=== PATIENT | male | born 1985 | race Caucasian/White ===

== ENCOUNTER 2018-12-09 06:47 | Emergency (ER) | payer SELFPAY ==
[2018-12-09 07:09] VITALS: BP 114/91
[2018-12-09 08:12] LABS: Hematocrit 42.4 % (35.5-45.6); Hemoglobin 14.3 gm/dl (11.8-15.2); Mean Corpuscular HGB Conc 34 % (32-34); Mean Corpuscular Volume 83 fl (84-94); Platelet Count 163 K/mm3 (140-440); Red Cell Distribution Width 13.7 % (13.2-15.2)
[2018-12-09] MEDS ORDERED: NACL 0.9% 1000 ML 1,000 ML IV ONE ×2 (08:14→12:09)
--- NOTE | 2018-12-09 08:14 | Emergency Department Report ---
ED Abdominal Pain HPI - General Chief Complaint: Abdominal Pain Stated Complaint: ABDOMINAL PAIN, LOOSE/BLOODY STOOL Time Seen by Provider: 12/09/18 07:38 Source: patient Mode of arrival: Ambulatory Limitations: No Limitations - History of Present Illness Initial Comments: 33 yo AA male here with abd pain and red blood in his stool x 1 week. no fever. no nausea or vomiting. pmh HIV on no meds Complaint: abdominal pain -: days(s) Location: diffuse Severity: moderate Quality: cramping Consistency: intermittent Associated Symptoms: nausea, diarrhea. denies: vomiting, fever, chills, constipation, dysuria, hematemesis, hematochezia, melena, hematuria, anorexia, syncope - Related Data Previous Rx's Medication Instructions Recorded Last Taken Type Ciprofloxacin HCl [Cipro] 500 mg PO BID #20 tablet 12/09/18 Unknown Rx metroNIDAZOLE [Flagyl] 500 mg PO Q12HR #20 tab 12/09/18 Unknown Rx Allergies Allergy/AdvReac Type Severity Reaction Status Date / Time No Known Allergies Allergy Unverified 12/09/18 07:06 ED Review of Systems ROS: Stated complaint: ABDOMINAL PAIN, LOOSE/BLOODY STOOL Other details as noted in HPI Comment: All other systems reviewed and negative Constitutional: denies: chills, fever Eyes: denies: eye pain ENT: denies: throat pain Respiratory: denies: cough Cardiovascular: denies: palpitations Gastrointestinal: as per HPI, abdominal pain, nausea, vomiting, diarrhea. denies: constipation, hematemesis, melena, hematochezia Genitourinary: denies: urgency Musculoskeletal: denies: back pain Skin: denies: lesions Neurological: denies: weakness Psychiatric: denies: depression Hematological/Lymphatic: denies: easy bleeding ED Past Medical Hx - Past Medical History Previous Medical History?: Yes Hx Asthma: Yes Additional medical history: hiv- ON NO MEDS AT THIS TIME - Surgical History Past Surgical History?: No - Family History Family history: no significant - Social History Smoking Status: Current Every Day Smoker Substance Use Type: Marijuana - Medications Home Medications: Home Medications Medication Instructions Recorded Confirmed Last Taken Type Ciprofloxacin HCl [Cipro] 500 mg PO BID #20 tablet 12/09/18 Unknown Rx metroNIDAZOLE [Flagyl] 500 mg PO Q12HR #20 tab 12/09/18 Unknown Rx ED Physical Exam - General Limitations: No Limitations General appearance: alert - Head Head exam: Present: atraumatic - Eye Eye exam: Present: PERRL - ENT ENT exam: Present: mucous membranes moist - Neck Neck exam: Present: normal inspection - Respiratory Respiratory exam: Present: normal lung sounds bilaterally - Cardiovascular Cardiovascular Exam: Present: regular rate - GI/Abdominal GI/Abdominal exam: Present: soft, tenderness - Rectal Rectal exam: Present: deferred - Extremities Exam Extremities exam: Present: normal inspection, full ROM - Back Exam Back exam: Present: normal inspection, full ROM - Neurological Exam Neurological exam: Present: alert, oriented X3, CN II-XII intact - Psychiatric Psychiatric exam: Present: normal affect, normal mood - Skin Skin exam: Present: warm, dry, intact, normal color ED Course Vital Signs 12/09/18 12/09/18 07:06 13:23 Temperature 98.4 F Pulse Rate 73 Respiratory 18 18 Rate Blood Pressure 114/91 O2 Sat by Pulse 100 Oximetry ED Medical Decision Making - Lab Data Result diagrams: 12/09/18 07:59 12/09/18 07:59 - Radiology Data Radiology results: report reviewed, image reviewed COLITIS - Medical Decision Making LABS NOTED MEDICATED FOR PAIN AND NAUSEA ZOFRAN BENTYL TORADOL NS X 2 L FLAGYL AND ZOSYN XRAY NOTED WITH ABNORMAL GAS PATTERN CT NOTED- COLITIS FINDINGS CONSISTENT WITH EXAM NO FEVER WBC NORMAL ON DC VSS, TAKING PO AND AMBULATORY DC HOME WITH FAMILY AND FOLLOW UP ARRANGED Labs 12/09/18 12/09/18 12/09/18 07:59 07:59 08:50 WBC 9.0 RBC 5.10 H Hgb 14.3 Hct 42.4 MCV 83 L MCH 28 MCHC 34 RDW 13.7 Plt Count 163 Sodium 137 Potassium 4.7 Chloride 100.2 Carbon Dioxide 28 Anion Gap 14 BUN 4 L Creatinine 0.7 L Estimated GFR > 60 BUN/Creatinine Ratio 6 Glucose 86 Calcium 8.2 L Urine Color Yellow Urine Turbidity Clear Urine pH 6.0 Ur Specific [place] 1.006 Urine Protein <15 mg/dl Urine Glucose (UA) Neg Urine Ketones Neg Urine Blood Mod Urine Nitrite Neg Urine Bilirubin Neg Urine Urobilinogen < 2.0 Ur Leukocyte Esterase Neg Urine WBC (Auto) 1.0 Urine RBC (Auto) 3.0 - Differential Diagnosis RO ACUTE ABD Critical care attestation.: If time is entered above; I have spent that time in minutes in the direct care of this critically ill patient, excluding procedure time. ED Disposition Clinical Impression: Colitis, HIV (human immunodeficiency virus infection) Disposition: DC- TO HOME OR SELFCARE Is pt being admited?: No Does the pt Need Aspirin: No Condition: Stable Instructions: Infectious Colitis (ED) Additional Instructions: water water water do not take anything to stop the diarrhea meds as ordered today motrin or tylenol for fever activity as tolerated follow up with pcp ronny referral below [facility] on [address] is a great place to contact for HIV care Prescriptions: Ciprofloxacin HCl [Cipro] 500 mg PO BID #20 tablet metroNIDAZOLE [Flagyl] 500 mg PO Q12HR #20 tab Referrals: ANA EDGAR MD [Staff Physician] - 3-5 Days ANNE MARIE DELAROSA MD [Primary Care Provider] - 3-5 Days ANKIT VELA MD [Staff Physician] - 3-5 Days MOSHE NEWBERRY MD [Staff Physician] - 3-5 Days Forms: Accompanied Note, Work/School Release Form(ED) Time of Disposition: 12:36
[2018-12-09] MEDS ORDERED: BENTYL PO ONE (08:21)
[2018-12-09 08:25] LABS: BUN/Creatinine Ratio 6; Blood Urea Nitrogen 4 mg/dL (9-20); Calcium 8.2 mg/dL (8.4-10.2); Hemolysis Index 6
[2018-12-09] MEDS ORDERED: TORADOL IV ONE (08:28)
[2018-12-09] MEDS ORDERED: BENTYL IM ONE (08:29)
[2018-12-09] MEDS ORDERED: TORADOL ONE (08:31)
[2018-12-09] MEDS ORDERED: ZOFRAN IV ONE (08:40)
[2018-12-09] MEDS ORDERED: ZOFRAN ONE (08:44)
[2018-12-09 09:21] LABS: Bilirubin,Urine NEG (Negative); Blood,Urine MOD (Negative); Color,Urine Yellow (Yellow); Protein,Urine <15 mg/dL mg/dL (Negative); Urobilinogen,Urine < 2.0 mg/dL (<2.0)
--- NOTE | 2018-12-09 10:57 | XRay Report ---
FINAL REPORT EXAM: XR ABDOMEN 2V HISTORY: ABDOMINAL PAIN, Mid and lower abdomen pain x5 days, loose and bloody stools per patient TECHNIQUE: Supine and upright abdomen PRIORS: None. FINDINGS: There is no free air. The bowel gas pattern is nonspecific. There are some mildly dilated small bowel loops. There is some gas normal caliber colon. Findings could reflect ileus. Obstruction not exclude d. There are no suspicious calcifications seen. IMPRESSION: Mildly dilated proximal small bowel loops. This is a nonspecific gas pattern. Findings could reflect ileus or obstruction.
--- NOTE | 2018-12-09 12:03 | Cat Scan Report ---
FINAL REPORT EXAM: CT ABDOMEN PELVIS W CON HISTORY: ABDOMINAL PAIN TECHNIQUE: CT of the abdomen and pelvis was performed after the administration of intravenous contra st. Subsequently, CT of the abdomen and pelvis was performed in the delayed phase. Reconstructions were included in the coronal and sagittal planes. PRIORS: None. FINDINGS: Lower thorax: The lung bases are clear. The visualized portions of the heart are normal. Liver: The liver is normal in attenuation. No intrahepatic biliary duct dilation. No focal hepatic le sions. Gallbladder/ biliary system: No cholelithiasis. The common bile duct appears nondilated. Spleen: No splenic lesions are seen. Pancreas: No pancreatic lesions are seen. No pancreatic duct dilation. Kidneys: There is a 4 millimeter nonobstructing calculus in the interpolar region of the left kidney. No ureteral calculi. No hydronephrosis. No renal cysts or masses. Adrenal glands: No adrenal masses. Vasculature: The abdominal and pelvic vasculature is patent without variant anatomy. Lymph nodes: No enlarged lymph nodes are seen in the abdomen or pelvis. Bowel, mesentery, peritoneum: No bowel obstruction. There is a small amount of free fluid in the pelv is. The appendix is normal. No colonic diverticulosis. There is wall thickening and surrounding infla mmation of the distal transverse and proximal descending colon. Urinary bladder: No filling defects are seen. Pelvis: Normal anatomy is noted. No masses. Abdominal wall: No abdominal wall hernia or other subcutaneous findings. Bones: No acute or chronic osseous finding. IMPRESSION: 1. Wall thickening and surrounding inflammation of the distal transverse and proximal descending colo n likely related to colitis, infectious versus inflammatory or ischemic. Underlying colonic neoplasm is not completely excluded. Recommend further evaluation with colonoscopy when feasible. 2. Nonobstructing left renal calculus.
[2018-12-09] MEDS ORDERED: FLAGYL 500 MG/100 ML 500 MG/100 ML BAG IV ONE (12:09)
[2018-12-09] MEDS ORDERED: ZOSYN/NS 3.375GM/50ML 3.375 GM/50 ML BAG IV ONE (13:00)
[2018-12-09] MEDS ORDERED: MORPHINE IV ONE (13:13)
== END 2018-12-09 14:12 | disposition home or self-care (01) ==
LOC: ED 06:47
DX: K52.9 Noninfective gastroenteritis and colitis, unspecified (principal); Z21 Asymptomatic human immunodeficiency virus [HIV] infection status; J45.909 Unspecified asthma, uncomplicated; F17.200 Nicotine dependence, unspecified, uncomplicated
CPT/HCPCS: 36415; 74019; 74177; 80048; 81001; 85027; 96361; 96365; 96367; 96372; 96375; 99284; J0500; J1885; J2270; J2405; J2543; J7030; Q9967